=== PATIENT | male | born 1955 | race Caucasian/White ===

== ENCOUNTER 2022-06-19 11:19 | Emergency (ER) | payer MEDICARE, SELFPAY ==
[2022-06-19] VITALS (9 sets, daily range): BP systolic 146–159; BP diastolic 82–99; PULSE 66–85; RESP 20; TEMP 36.4; O2SAT 70–99; BMI 22.2
[2022-06-19] MEDS: 0.9 % SODIUM CHLORIDE 1000 ml 1,000 ML IV ×2 (12:25→13:44)
[2022-06-19 12:38] LABS: Lactate* 1.1 mmol/L (0.5-1.9)
[2022-06-19] MEDS: ONDANSETRON 2 MG/ML inj 4 MG IVP (12:38)
[2022-06-19 12:39] LABS: Basophils Absolute Auto 0.02 K/uL (0.00-0.30); Basophils Percent Auto 0.2 % (0.0-3.0); Eosinophils Absolute Auto 0.01 K/uL (0.00-0.50); Eosinophils Percent Auto 0.1 % (0.0-7.0); Hematocrit 47.4 % (37.0-53.0); Hemoglobin* 15.9 gm/dL (13.5-17.5); Immature Granulocytes Abs Auto 0.01 K/uL (0.00-0.30); Immature Granulocytes Pct Auto 0.1 %; Lymphocytes Percent Auto 8.4 % (20-44); Mean Corpuscular HGB Conc 34 gm/dL (32-36); Mean Corpuscular Hemoglobin 31 pg (26-34); Mean Corpuscular Volume 91 fL (80-100); Monocytes Percent Auto 6.3 % (0.0-11.0); Neutrophils Percent Auto 84.9 % (42.0-72.0); Platelet Count* 239 K/uL (140-440); RDW Coefficient of Variation % 12.5 % (11.5-15.5); Red Blood Count 5.22 m/uL (4.30-5.90); White Blood Count* 10.51 K/uL (4.50-11.00)
[2022-06-19 12:55] LABS: Slide Review Reflex No
[2022-06-19 12:57] LABS: Albumin* 4.6 g/dL (3.3-5.0); Chloride* 104 mmol/L (96-114)
[2022-06-19 12:58] LABS: Potassium* 3.7 mmol/L (3.6-5.1); Sodium* 141 mmol/L (135-149)
[2022-06-19 13:00] LABS: Creatinine* 0.8 mg/dL (0.5-1.5); Est. Creatinine Clearance* 75.42; Estimated Glomerular Filt Rate 97 ml/min
[2022-06-19 13:01] LABS: Alanine Aminotransferase* 25 U/L (4-50); Alkaline Phosphatase* 68 U/L (40-150); Aspartate Amino Transferase* 26 U/L (12-35); Bilirubin Direct* 0.1 mg/dL (0.0-0.5); Blood Urea Nitrogen* 17 mg/dL (7-30); Calcium* 8.8 mg/dL (8.4-10.6); Carbon Dioxide* 26 mmol/L (20-32); Glucose* 120 mg/dL (60-115); Lipase* 70 U/L (23-300)
[2022-06-19 13:04] LABS: C Reactive Protein* < 0.5 mg/dL (0.5-1.0)
[2022-06-19 13:56] LABS: Troponin I* < 0.01 ng/mL (0.01-0.04)
--- NOTE | 2022-06-19 14:01 | ED.GENADULT ---
HPI - General Adult General Date Seen: 06/19/22 Chief complaint: Abdominal Pain Stated complaint: Upper abdominal pain Time Seen by Provider: 06/19/22 11:22 Source: patient History of Present Illness HPI narrative: Patient is a 66-year-old male who presents for evaluation of vomiting and diarrhea, as well as epigastric pain. He says he became ill yesterday morning. He initially had some upper abdominal pain and then developed vomiting and has had a couple episodes of runny diarrhea as well. No bloody or black stools. He has developed some flecks of blood in his emesis today. Abdominal pain has become crampy and intermittent, improves with vomiting. He says he had sushi on Monday night, but he and his ate the same thing and she has not become sick. He has not had any fevers. He denies prior abdominal surgeries. He has not had any upper respiratory symptoms. No travel. No underlying health history. He does not smoke, denies any alcohol history. Is Related Data Home Medications Medication Instructions Recorded Confirmed No Known Home Medications 06/19/22 06/19/22 Allergies Allergy/AdvReac Type Severity Reaction Status Date / Time No Known Drug Allergies Allergy Verified 06/19/22 11:45 Review of Systems Status of ROS: Reports: 10 or more systems reviewed and unremarkable except as noted in History and below PFSH PFS Social History Smoking Status: Never smoker Do you use any of these nicotine containing products: None Second hand tobacco smoke exposure: No How often do you have a drink containing alcohol: 4 or more times a week How many standard drinks containing alcohol do you have on a typical day: 1 or 2 How often do you have six or more drinks on one occasion: Never AUDIT-C Alcohol total score: 4 Non-prescribed substance use: crack/cocaine Non-prescribed substance use details: gummies Exam Narrative: Exam Narrative: Vital signs as noted above. In general, an alert, well-appearing patient. Head: Normocephalic, atraumatic. Eyes: Pupils are equal reactive. Extraocular movements are full. Conjunctivae are normal. ENT: Mucous membranes are moist. Throat is normal. Neck: Supple without lymphadenopathy. Heart: Regular rate and rhythm. No murmur or rub. Lungs: Clear bilaterally. No increased work of breathing, crackles or wheezes. Abdomen: Soft and nondistended. Mild upper abdominal tenderness without rebound guarding or rigidity. Bowel sounds are active. Extremities: Well perfused. No edema. No calf tenderness. Pulses intact. Neurologic: Patient is alert and oriented to person and place. Speech is fluent. Face is symmetric. Moves all extremities equally. Affect: Normal. Skin: Warm and dry. Well perfused. Const: Vital Signs, click to edit/add: Vital Signs - 24 hr 06/19/22 11:42 06/19/22 13:30 Temperature 97.5 F L Pulse Rate [Pulse Oximeter] 76 66 Respiratory Rate 20 20 Blood Pressure [Ri ght Upper Arm] 149/82 H 153/95 H Pulse Oximetry 97 98 Oxygen Delivery Me thod Room Air Room Air Documenting provider has reviewed patient's vital signs: yes Course Course Hospital Course: Following initial evaluation, I did look at his gallbladder with the ultrasound. He has no evident gallstones, wall thickness looks normal, no pericholecystic fluid. Negative sonographic Urbina's. An IV was placed, he was given initially 1 L of normal saline as well as Zofran. Labs are really very reassuring. His white count 10.5, he does have a left shift with 85% neutrophils. Hemoglobin is 15.9. Platelets are normal. Electrolytes are normal, BUN is 17, creatinine 0.8. Lactate is 1.1. LFTs are entirely normal. Lipase is 70. Troponin is less than 0.01 and an EKG by my review shows a normal sinus rhythm, nonspecific ST changes, ventricular rate of 68. Appears to have U waves, but potassium is 3.7. We did hang a 2 L of normal saline. Overall, my suspicious for acute pathology such as diskitis, colitis, diverticulitis, bowel obstruction, mesenteric ischemia, etcetera is rather low. Symptoms seem most consistent with an enteritis. His abdominal exam is benign. He has had symptoms for 24 hours and his labs are unremarkable. I do not think this is related to cholecystitis given normal labs, negative sonographic Urbina's and absence of significant findings on bedside ultrasound. He has some streaking of blood in his emesis which I think is secondary to Julienne-Adamson tears I do not think this is a significant upper GI bleed. Hemoglobin is normal. I think it is most reasonable to treat symptomatically at this time. If he is not improving over the next 24 hours, would recommend re-evaluation with primary care or in the ER if primary care is not available. Of course, if symptoms are worsening, if he has new symptoms such as fever, severe uncontrolled pain, uncontrolled vomiting or hematemesis, he should be re-evaluated right away. Vital Signs Vital signs: Initial Vital Signs Temperature 97.5 F L 06/19/22 11:42 Temperature Source Temporal Artery Scan 06/19/22 11:42 Pulse Rate 76 06/19/22 11:42 Respiratory Rate 20 06/19/22 11:42 Blood Pressure 149/82 H 06/19/22 11:42 Blood Pressure Mean 104 06/19/22 11:42 Blood Pressure Position Sitting 06/19/22 11:42 Pulse Oximetry 97 06/19/22 11:42 Oxygen Delivery Method 06/19/22 11:42 Vital Signs Temperature 97.5 F L 06/19/22 11:42 Pulse Rate 76 06/19/22 11:42 Respiratory Rate 20 06/19/22 11:42 Blood Pressure 149/82 H 06/19/22 11:42 Pulse Oximetry 97 06/19/22 11:42 Oxygen Delivery Method 06/19/22 11:42 Temperature 97.5 F L 06/19/22 11:42 Pulse Rate 66 06/19/22 13:30 Respiratory Rate 20 06/19/22 13:30 Blood Pressure 153/95 H 06/19/22 13:30 Pulse Oximetry 98 06/19/22 13:30 Oxygen Delivery Method 06/19/22 13:30 Medical Decision Making Lab Data Labs: Lab Results 06/19/22 06/19/22 06/19/22 Range/Units 12: 12:22 12: WBC 10.51 (4.50-11.00) K/uL RBC 5.22 (4.30-5.90) m/uL Hgb 15.9 (13.5-17.5) gm/dL Hct 47.4 (37.0-53.0) % MCV 91 (80-100) fL MCH 31 (26-34) pg MCHC 34 (32-36) gm/dL RDW Coeff of Rozina 12.5 (11.5-15.5) % Plt Count 239 (140-440) K/uL Neut % (Auto) 84.9 H (42.0-72.0) % Lymph % (Auto) 8.4 L (20-44) % Greenlee % (Auto) 6.3 (0.0-11.0) % Eos % (Auto) 0.1 (0.0-7.0) % Baso % (Auto) 0.2 (0.0-3.0) % Neut # (Auto) 8.90 H (1.7-7.0) K/uL Lymph # (Auto) 0.90 (0.90-2.90) K/uL Greenlee # (Auto) 0.70 (0.00-0.90) K/UL Eos # (Auto) 0.01 (0.00-0.50) K/uL Baso # (Auto) 0.02 (0.00-0.30) K/uL Sodium 141 (135-149) mmol/L Potassium 3.7 (3.6-5.1) mmol/L Chloride 104 (96-114) mmol/L Carbon Dioxide 26 (20-32) mmol/L BUN 17 (7-30) mg/dL Creatinine 0.8 (0.5-1.5) mg/dL Estimated Creat Clear 75.42 Estimated GFR 97 ml/min Glucose 120 H (60-115) mg/dL Lactate 1.1 (0.5-1.9) mmol/L Calcium 8.8 (8.4-10.6) mg/dL Total Bilirubin 1.0 (0.1-1.5) mg/dL Direct Bilirubin 0.1 (0.0-0.5) mg/dL AST 26 (12-35) U/L ALT 25 (4-50) U/L Alkaline Phosphatase 68 (40-150) U/L Troponin I (0.01-0.04) ng/mL C-Reactive Protein < 0.5 L (0.5-1.0) mg/dL Total Protein 8.0 (6.0-8.3) g/dL Albumin 4.6 (3.3-5.0) g/dL Lipase 70 (23-300) U/L /18/22 Range/Units 12:22 WBC (4.50-11.00) K/uL RBC (4.30-5.90) m/uL Hgb (13.5-17.5) gm/dL Hct (37.0-53.0) % MCV (80-100) fL MCH (26-34) pg MCHC (32-36) gm/dL RDW Coeff of Rozina (11.5-15.5) % Plt Count (140-440) K/uL Neut % (Auto) (42.0-72.0) % Lymph % (Auto) (20-44) % Greenlee % (Auto) (0.0-11.0) % Eos % (Auto) (0.0-7.0) % Baso % (Auto) (0.0-3.0) % Neut # (Auto) (1.7-7.0) K/uL Lymph # (Auto) (0.90-2.90) K/uL Greenlee # (Auto) (0.00-0.90) K/UL Eos # (Auto) (0.00-0.50) K/uL Baso # (Auto) (0.00-0.30) K/uL Sodium (135-149) mmol/L Potassium (3.6-5.1) mmol/L Chloride (96-114) mmol/L Carbon Dioxide (20-32) mmol/L BUN (7-30) mg/dL Creatinine (0.5-1.5) mg/dL Estimated Creat Clear Estimated GFR ml/min Glucose (60-115) mg/dL Lactate (0.5-1.9) mmol/L Calcium (8.4-10.6) mg/dL Total Bilirubin (0.1-1.5) mg/dL Direct Bilirubin (0.0-0.5) mg/dL AST (12-35) U/L ALT (4-50) U/L Alkaline Phosphatase (40-150) U/L Troponin I < 0.01 L (0.01-0.04) ng/mL C-Reactive Protein (0.5-1.0) mg/dL Total Protein (6.0-8.3) g/dL Albumin (3.3-5.0) g/dL Lipase (23-300) U/L Discharge Plan Discharge Clinical Impression: Gastroenteritis Patient Disposition: Home, Self-Care Condition: Improved Instructions: Gastroenteritis (DC) Additional Instructions: If symptoms have not improved at all in 24 hours, you should be re-evaluated, either in your clinic, or if clinic is not available, in the emergency department. If at any time you have severe abdominal pain, fevers, bloody stools, or other acute worsening, return sooner for more urgent re-evaluation. Zofran as needed for nausea/vomiting, clear liquids, advance diet as able. Prescriptions: No Action No Known Home Medications Follow Up/Referrals: William Teague MD [Primary Care Provider] - Stand Alone Forms: [employer] Info Instructions
--- NOTE | 2022-06-19 15:00 | ED.NURSE ---
was able to tolerate po-water. does want to go home. has zofran in the instymeds to be filled.
== END 2022-06-19 15:20 | disposition home or self-care (01) ==
PROVIDERS: Emergency Provider Emergency Medicine; PCP Family Medicine
DX: K52.9 Noninfective gastroenteritis and colitis, unspecified (principal)
CPT/HCPCS: 36415; 80048; 80076; 83605; 83690; 84484; 85025; 86140; 93005; 96374; 99284; J2405; J7030